=== PATIENT | male | born 1960 | race Caucasian/White ===

== ENCOUNTER 2022-12-23 18:58 | Emergency (ER) | payer OTHER, SELFPAY ==
[2022-12-23 19:37] VITALS: BP 137/67; PULSE 81; RESP 18; TEMP 36.8; O2SAT 99; BMI 35.5
--- NOTE | 2022-12-23 22:14 | PC.NURSE ---
Called for patient. Unable to locate
--- NOTE | 2022-12-23 22:39 | PC.NURSE ---
Called for patient. Unable to locate.
--- NOTE | 2022-12-23 22:41 | PC.NURSE ---
Patient back in waiting room. Updated on wait.
--- NOTE | 2022-12-23 22:50 | PC.NURSE ---
unable to locate pt in waiting room, pt returned about 20 min later calling on the red phone to the nurses station asking when he was coming back [facility] attempted to explain to pt that he was called and there was no answer and that we were unable to locate him in the waiting room, pt started cursing at [facility] stating he was fucking leaving he continued to curse at the [facility] and finally stated he was fucking leaving, then per the security pt attempted to take the wheelchair home
== END 2022-12-23 22:58 | disposition left against medical advice (07) ==
PROVIDERS: Emergency Provider Emergency Medicine; PCP Family Medicine
DX: S01.512A Laceration without foreign body of oral cavity, initial encounter (principal); W45.8XXA Other foreign body or object entering through skin, initial encounter; Y93.9 Activity, unspecified
CPT/HCPCS: 99281